=== PATIENT | female | born 1995 | race Caucasian/White ===

== ENCOUNTER 2016-08-09 00:34 | Inpatient (IN) | payer OTHER ==
[2016-08-09] VITALS (22 sets, daily range): BP systolic 114–140; BP diastolic 60–87
[~2016-08-09] VITALS: Ht 162.6 cm; Wt 74.4 kg
[2016-08-09 01:24] LABS: EOSINOPHIL (%) 0.6 % (0-5); EOSINOPHIL COUNT 0.1 K/uL (0-0.3); HEMATOCRIT 34.2 % (36.0-46.0); IMMATURE GRANULOCYTE (%) 0.5 % (0.0-0.7); IMMATURE GRANULOCYTE COUNT 0.1 K/uL; INSTRUMENT ABS NEUTROPHIL CT 13.8 K/uL; LYMPHOCYTE COUNT 2.2 K/uL (1.0-2.8); MCH 28.4 PG (29.0-34.0); MCHC 33.3 G/DL (30.0-36.0); MCV 85.1 FL (83-99); MEAN PLAT.VOLUME 9.8 uM^3 (9.5-12.4); MONOCYTE (%) 8.2 % (3-12); MONOCYTE COUNT 1.4 K/uL (0-0.8); NEUTROPHIL (%) 78.1 % (45-76); NEUTROPHIL COUNT 13.8 K/uL (1.8-6.4); PLATELET COUNT 312 K/uL (156-360); RBC DIS.WIDTH-CV 12.7 % (11.8-14.6); RED BLOOD COUNT 4.02 M/uL (3.80-5.20); WHITE BLOOD COUNT 17.7 K/uL (4.1-10.2)
[2016-08-09 03:05] LABS: METH RESISTANT S AUREUS PCR NEGATIVE (NEGATIVE)
[2016-08-09 03:06] LABS: PROBE CHECK PASS; SPECIMEN PROCESSING CONTROL PASS
[2016-08-09] MEDS ORDERED: PRENATAL GUMMI1 EACH PO (06:35)
[2016-08-09] MEDS ORDERED: IBUPROFEN800 MG PO (16:58)
[2016-08-10 23:02] VITALS: BP 120/76
[2016-08-11 07:31] VITALS: BP 111/77
== END 2016-08-11 13:30 | disposition home or self-care (01) | DRG 775 ==
LOC: LDRP-OP 00:34 → 2WEST 00:35 → LDRP-OP 09:50 → 2WEST 16:18 → LDRP-OP 09-04 10:37
PROVIDERS: Midwife
PROC: 00HU33Z Insertion of Infusion Device into Spinal Canal, Percutaneous Approach (ICD-10-PCS; principal; 2016-08-09)
PROC: 10E0XZZ Delivery of Products of Conception, External Approach (ICD-10-PCS; principal; 2016-08-09)
PROC: 3E0R3CZ (ICD-10-PCS; principal; 2016-08-09)
DX: O99.824 Streptococcus B carrier state complicating childbirth (principal); O76 Abnormality in fetal heart rate and rhythm complicating labor and delivery; Z3A.40 40 weeks gestation of pregnancy; Z37.0 Single live birth
CPT/HCPCS: 85025; 87641; C1755; J2540; J3010; J7120

== ENCOUNTER 2017-08-08 19:36 | Emergency (ER) | payer OTHER ==
[~2017-08-08] VITALS: Ht 165.1 cm; Wt 63.0 kg
[~2017-08-08 19:36] MED LIST: IBUPROFEN800 MG PO; PRENATAL GUMMI1 EACH PO
[2017-08-08 19:58] LABS: HEMATOCRIT 43.2 % (36.0-46.0); HEMOGLOBIN 14.4 G/DL (11.9-15.5); MCH 28.5 PG (29.0-34.0); MCHC 33.3 G/DL (30.0-36.0); MCV 85.4 FL (83-99); PLATELET COUNT 365 K/uL (156-360); RBC DIS.WIDTH-CV 14.2 % (11.8-14.6); RBC DIS.WIDTH-SD 44.3 % (39-53); RED BLOOD COUNT 5.06 M/uL (3.80-5.20); WHITE BLOOD COUNT 12.4 K/uL (4.1-10.2)
[2017-08-08 20:06] LABS: ALBUMIN 4.7 g/dL (3.2-4.8)
[2017-08-08 20:07] LABS: CHLORIDE 103 mEq/L (99-109); POTASSIUM 4.1 mEq/L (3.7-5.4); SODIUM 140 mEq/L (136-147)
[2017-08-08 20:09] LABS: GLUCOSE 87 mg/dL (70-99); TOTAL PROTEIN 7.8 g/dL (6.4-8.3)
[2017-08-08 20:11] LABS: TOTAL BILIRUBIN 0.5 mg/dL (0.0-1.0)
[2017-08-08 20:12] LABS: ALKALINE PHOSPHATASE 83 IU/L (3-129)
[2017-08-08 20:13] LABS: CREATININE 0.8 mg/dL (0.6-1.3); GFR ESTIMATE (CALCULATED) > 59 mL/min/
[2017-08-08 20:14] LABS: AST (GOT) 15 IU/L (2-34); UREA NITROGEN (BUN) 8 mg/dL (9-23)
[2017-08-08 20:16] LABS: ALT (GPT) 9 IU/L (3-49)
[2017-08-08 20:21] LABS: QUANTITATIVE HCG < 4.0 MIU/ML
[2017-08-08 21:41] LABS: DIRECT BILIRUBIN 0.2 mg/dL (0.0-0.3)
[2017-08-08 22:34] LABS: APPEARANCE CLEAR ((CLEAR)); BILIRUBIN NEGATIVE; BLOOD NEGATIVE; COLOR YELLOW ((YELLOW)); GLUCOSE (STRIP) NEGATIVE; KETONES NEGATIVE; LEUKOCYTES SMALL; NITRITE NEGATIVE; PROTEIN (STRIP) NEGATIVE; SPECIFIC GRAVITY 1.048 (1.000-1.030); UROBILINOGEN 0.2 MG/DL (0.2-1.0)
[2017-08-08 22:40] LABS: BACTERIA NONE SEEN /HPF; EPITHELIAL CELLS 1+ /HPF; MUCUS NONE SEEN /LPF; RED BLOOD CELLS 0-5 /HPF (0-5); UCUL ADDED? NO; WHITE BLOOD CELLS 0-5 /HPF (0-5)
[2017-08-08 23:02] VITALS: BP 113/73
== END 2017-08-08 23:04 | disposition home or self-care (01) ==
LOC: EME 19:36
DX: R10.31 Right lower quadrant pain (principal); E86.0 Dehydration; F17.200 Nicotine dependence, unspecified, uncomplicated
CPT/HCPCS: 74177; 76856; 80053; 80076; 81003; 82248; 84702; 85027; 93975; 99281; 99284